=== PATIENT | male | born 1985 | race Caucasian/White ===

== ENCOUNTER 2022-08-14 11:14 | Inpatient (IN) | payer MEDICAID, OTHER ==
[~2022-08-14] VITALS: Ht 162.6 cm; Wt 72.6 kg
[2022-08-14] MEDS ORDERED: MORPHINE SULFATE 4 MG/ML CPJ (NOT FOR IM USE) IV STA ×2 (12:28→15:55)
[2022-08-14] MEDS ORDERED: ONDANSETRON HCL 4MG/2ML INJ IV STA ×2 (12:28→15:55)
[2022-08-14] MEDS ORDERED: SODIUM CHLORIDE 0.9% 1,000 ML IV ONE (12:30)
[2022-08-14 12:47] LABS: BASOPHILS % 0.9 % (0.0-2.0); LYMPHOCYTES % 12.1 % (20.0-50.0); MEAN CORPUSCULAR VOLUME 98.4 fL (80.0-94.0); MONOCYTES % 2.7 % (2.0-8.0); NEUTROPHILS % 84.3 % (40.0-76.0); RED BLOOD CELL COUNT 4.58 mill/uL (4.7-6.1); RED CELL DISTRIBUTION WIDTH 15.1 % (11.6-14.6)
[2022-08-14 13:13] LABS: CHLORIDE 96 mEq/L (98-107)
[2022-08-14 13:22] LABS: ETHANOL BLOOD < 10 mg/dL
[2022-08-14 13:35] LABS: HEMOGLOBIN. 14.9 g/dL (14.0-18.0); MEAN CORPUSCULAR HEMOGLOBIN 32.5 pg (28.0-32.0)
[2022-08-14 13:50] LABS: MEAN PLATELET VOLUME 10.1 fl (7.4-10.4); PLATELET 63 x1000/uL (130-400)
[2022-08-14 17:15] LABS: CLARITY URINE CLEAR (CLEAR); COLOR URINE ORANGE (YELLOW); KETONES URINE NEGATIVE (NEGATIVE); LEUKOCYTE ESTERASE URINE 1+ (NEGATIVE); NITRITE URINE POSITIVE (NEGATIVE); OCCULT BLOOD URINE NEGATIVE (NEGATIVE); PROTEIN URINE 2+ (NEGATIVE); SPECIFIC GRAVITY URINE 1.046 (1.005-1.030)
[2022-08-14] MEDS ORDERED: ONDANSETRON HCL 4MG/2ML INJ IV PRN (17:30)
[2022-08-14] MEDS ORDERED: IPRATROPIUM/ALBUTEROL 0.5-3(2.5)MG/3ML NEB HHN PRN (17:30)
[2022-08-14 17:35] LABS: *AMPHETAMINES SCREEN URINE NEGATIVE (NEGATIVE); *BARBITURATES SCREEN URINE NEGATIVE (NEGATIVE); *BENZODIAZEPINES SCREEN URINE NEGATIVE (NEGATIVE); *COCAINE SCREEN URINE NEGATIVE (NEGATIVE); CANNABINOID URINE SCREEN NEGATIVE (NEGATIVE); METHADONE URINE SCREEN NEGATIVE (NEGATIVE); OPIATES URINE SCREEN PRESUMTIVE POSITIVE (NEGATIVE); PHENCYCLIDINE URINE SCREEN NEGATIVE (NEGATIVE)
[2022-08-14] MEDS ORDERED: CALCIUM GLUCONATE 100MG/ML 10ML VIAL IV ONE (17:45)
[2022-08-14] MEDS ORDERED: ENOXAPARIN 40MG/0.4ML SYR SUBCUT SCH (18:00)
[2022-08-14] MEDS: SODIUM CHLORIDE 0.9% 1,000 ML IV SCH (18:00)
[2022-08-14] MEDS: HYDROMORPHONE HCL/PF 2MG/ML CPJ IV PRN (18:44)
[2022-08-14] MEDS ORDERED: NALOXONE HCL 0.4MG/ML VIAL IV PRN (18:45)
[2022-08-14] MEDS ORDERED: CALCIUM GLUCONATE 2,000 MG in DEXT 5% WATER 80 ML IV NR (19:00)
[2022-08-15 00:30] VITALS: BP 107/60
[2022-08-15] MEDS: HYDROMORPHONE HCL/PF 2MG/ML CPJ IV PRN ×2 (01:02→07:04)
[2022-08-15] MEDS ORDERED: DEXTROSE 50% WATER 50ML SYRINGE IV PRN (02:15)
[2022-08-15] MEDS: SODIUM CHLORIDE 0.9% 1,000 ML IV SCH ×2 (03:30→17:21)
[2022-08-15] MEDS: BLOOD SUGAR DIAGNOSTIC STRIP TEST SCH ×4 (07:01→20:19)
[2022-08-15] MEDS: INSULIN LISPRO 100 UNITS/ML SUBCUT SCH ×4 (07:01→20:20)
[2022-08-15 07:26] LABS: HEMATOCRIT. 39.2 % (42.0-52.0); HEMOGLOBIN. 13.8 g/dL (14.0-18.0); MEAN CORPUSCULAR VOLUME 99.2 fL (80.0-94.0); MEAN PLATELET VOLUME 10.4 fl (7.4-10.4); PLATELET 61 x1000/uL (130-400); RED BLOOD CELL COUNT 3.95 mill/uL (4.7-6.1); RED CELL DISTRIBUTION WIDTH 14.5 % (11.6-14.6)
[2022-08-15 08:00] VITALS: BP 109/75
[2022-08-15 08:47] LABS: CHLORIDE 102 mEq/L (98-107)
[2022-08-15 08:48] LABS: PLATELET ESTIMATE DECREASED
[2022-08-15 08:57] LABS: LDL CHOLESTEROL 155 mg/dL (5-100); PHOSPHORUS 1.2 mg/dL (2.5-4.9)
[2022-08-15] MEDS ORDERED: PANTOPRAZOLE SODIUM 40 MG/VIAL IV SCH (09:00)
[2022-08-15 09:47] LABS: HDL CHOLESTEROL 14 mg/dL (40-59)
[2022-08-15] MEDS ORDERED: FOLIC ACID 1 MG in SODIUM CHLORIDE 0.9% 500 ML IV SCH (11:00)
[2022-08-15] MEDS ORDERED: THIAMINE HCL 100 MG in SODIUM CHLORIDE 0.9% 50 ML IV SCH (11:00)
[2022-08-15] MEDS ORDERED: KCL 10MEQ/50ML PREMIX 50 ML IV NR (11:30)
[2022-08-15] MEDS ORDERED: CALCIUM GLUCONATE 1GM PREMIX 50 ML IV NR (11:30)
[2022-08-15 12:00] VITALS: BP_SYST 118; BP_SYST 122; BP_DIAS 76; BP_DIAS 83
[2022-08-15 16:27] VITALS: BP 122/83
[2022-08-15] MEDS: DEXT 5%/0.9% NACL 1,000 ML IV SCH (19:20)
[2022-08-15] MEDS ORDERED: MAGNESIUM 2 G PREMIX 50 ML IV NR (22:30)
[2022-08-16] MEDS: DEXT 5%/0.9% NACL 1,000 ML IV SCH (04:30)
[2022-08-16 06:46] LABS: BASOPHILS % 0.3 % (0.0-2.0); EOSINOPHILS % 0.4 % (0.0-5.0); HEMATOCRIT. 35.9 % (42.0-52.0); HEMOGLOBIN. 12.3 g/dL (14.0-18.0); MEAN CORPUSCULAR HEMOGLOBIN 33.5 pg (28.0-32.0); MEAN CORPUSCULAR VOLUME 97.9 fL (80.0-94.0); MEAN PLATELET VOLUME 9.5 fl (7.4-10.4); MONOCYTES % 6.9 % (2.0-8.0); NEUTROPHILS % 77.4 % (40.0-76.0); PLATELET 82 x1000/uL (130-400); RED BLOOD CELL COUNT 3.67 mill/uL (4.7-6.1); RED CELL DISTRIBUTION WIDTH 14.5 % (11.6-14.6)
[2022-08-16 06:55] LABS: CHLORIDE 104 mEq/L (98-107)
[2022-08-16 07:14] LABS: PHOSPHORUS 0.9 mg/dL (2.5-4.9)
== END 2022-08-16 06:53 | disposition left against medical advice (07) | DRG 282 ==
LOC: ER 11:40 → EDBEDREQ 13:35 → MICUSO 14:31 → EDBEDREQ 14:33 → ENRESERV 22:41 → 6EST 08-15 00:36
PROVIDERS: ADMIT Hospitalist; ATTEND Hospitalist
DX: K85.20 Alcohol induced acute pancreatitis without necrosis or infection (principal); D69.6 Thrombocytopenia, unspecified; E44.0 Moderate protein-calorie malnutrition; E83.39 Other disorders of phosphorus metabolism; E83.51 Hypocalcemia; K70.9 Alcoholic liver disease, unspecified; E11.65 Type 2 diabetes mellitus with hyperglycemia; E78.1 Pure hyperglyceridemia; E83.42 Hypomagnesemia; E87.1 Hypo-osmolality and hyponatremia; E87.6 Hypokalemia; K82.8 Other specified diseases of gallbladder; K76.0 Fatty (change of) liver, not elsewhere classified; F10.20 Alcohol dependence, uncomplicated; Y90.0 Blood alcohol level of less than 20 mg/100 ml; Z68.27 Body mass index [BMI] 27.0-27.9, adult; Z53.29 Procedure and treatment not carried out because of patient's decision for other reasons
CPT/HCPCS: 36415; 71045; 74176; 76705; 80053; 80061; 80305; 80320; 81003; 82330; 82962; 83036; 83735; 84100; 85025; 85379; 93005; 93970; 99285; C9113; J0610; J1170; J1815; J2270; J2405; J3411; J3475; J3480; J3490; J7030; J7040; J7060; G0480